=== PATIENT | male | born 2000 | race African-American/Black ===

== ENCOUNTER 2020-08-25 12:41 | Emergency (ER) | payer OTHER, SELFPAY ==
--- NOTE | ~2020-08-25 | US_ITS ---
EXAMINATION: US scrotum doppler EXAM DATE: 08/25/2020 14:20 INDICATION: Mass, lump left testicle/scrotum. TECHNIQUE: Multiple grayscale and Doppler images of the testicles and scrotum were obtained bilateral ly. There is no prior study for comparison. FINDINGS: Right testicle measures 4.6 x 2.4 x 3.8 cm and is morphologically normal. Low resistance Doppler anne w confirmed. The epididymis is unremarkable. There is no hydrocele or varicocele. Left testicle measures 5.6 x 3.2 x 3.1 cm and is morphologically normal. Low resistance Doppler flow confirmed. There is a moderate size left-sided varicocele with vessels measuring up to [address] which augment with Valsalva. The region of the palpable abnormality there is a 2.0 x 1.8 x 0.9 cm region which is heterogeneously hypoechoic with internal flow on color Doppler. This appears contigu ous with the body of the epididymis likely representing swelling and edema of the epididymal tail. Sm all left hydrocele. IMPRESSION: 1. 2.0 x 1.8 x 0.9 cm hypoechoic region at the tail of the epididymis most likely focal epididymitis with acute acute or chronic and either septic or aseptic inflammatory/granulomatous epididymitis. Di fferential would also include thrombosed varicocele or less likely epididymal neoplasm which could be either benign or rarely malignant. 2. Small left hydrocele. Reviewed, dictated and finalized at location B. IMPRESSION: 1. 2.0 x 1.8 x 0.9 cm hypoechoic region at the tail of the epididymis most lik trever focal epididymitis with acute acute or chronic and either septic or aseptic inflammatory/granulomatous epididymitis. Differential would also include throm bosed varicocele or less likely epididymal neoplasm which could be either benig n or rarely malignant. 2. Small left hydrocele.
[2020-08-25 12:49] VITALS: BP 149/84; PULSE 81; RESP 20; TEMP 37.1; O2SAT 100
--- NOTE | 2020-08-25 12:54 | ED_ITS ---
HPI - Male Genitourinary General Chief complaint: Urogenital-Male Stated complaint: lump on scrotum Time Seen by Provider: 08/25/20 12:49 Source: patient Mode of arrival: ambulatory Limitations: no limitations History of Present Illness HPI Narrative: Patient is a 21-year-old male complaining of bump in his left testicle, worsens when he wears tight fitting underwear. Patient denies any testicular pain or swelling. Patient denies any penile discharge. Patient has no other complaints. Related Data Home Medications Medication Instructions Recorded Confirmed No Home Medications 08/25/20 08/25/20 Allergies Allergy/AdvReac Type Severity Reaction Status Date / Time No Known Allergies Allergy Verified 08/25/20 12:51 Review of Systems Review of Systems: All systems reviewed & are unremarkable except as noted in HPI and below PMFSH Comments Past medical history: None Social history: Non-smoker no EtOH or drug use Family history noncontributory Exam Const: General: cooperative, healthy appearing, comfortable and no acute distress HENMT: Head: normal to inspection Ears: hearing grossly normal bilaterally General nose exam: Normal external nose present Face and sinus: normal facial exam Eyes: General: appearance normal, both eyes and all related structures Neck: Neck: normal visual inspection Resp: Effort & Inspection: normal respiratory effort : Penis: Yes normal penis Other: Negative for testicular or scrotal swelling or tenderness. Course Vital Signs Vital signs: Vital Signs Temperature 37.1 C 08/25/20 12:49 Pulse Rate 81 08/25/20 12:49 Respiratory Rate 20 08/25/20 12:49 Blood Pressure 149/84 H 08/25/20 12:49 Pulse Oximetry 100 08/25/20 12:49 Temperature 37.1 C 08/25/20 12:49 Pulse Rate 81 08/25/20 12:49 Respiratory Rate 20 08/25/20 12:49 Blood Pressure 149/84 H 08/25/20 12:49 Pulse Oximetry 100 08/25/20 12:49 MDM - Male Genitourinary MDM Narrative Medical decision making narrative: Ultrasound shows left hydrocele, which is the bump he is complaining of in his left testicle. Advised to follow-up with urology, patient verbalized understanding of the plan and states that he would comply. Discharge Plan Discharge Clinical Impression: Hydrocele of testis Patient Disposition: Home, Self-Care Condition: Stable Instructions: Hydrocele (ED) Prescriptions: No Action No Home Medications RF: 0 Follow-up/Referrals: Cordell Gonzáles MD [Physician] - (Call for an appointment) PHYSICIAN,CERTIFIED MEDICAL TRANSCRIPTIONIST [Primary Care Provider] - Time of Disposition: 15:18
[2020-08-25 15:24] VITALS: BP 138/60; PULSE 60; RESP 18; O2SAT 99
== END 2020-08-25 15:26 | disposition home or self-care (01) ==
PROVIDERS: Emergency Provider Emergency Medicine
DX: N43.2 Other hydrocele (principal)
CPT/HCPCS: 76870; 93976; 99284

== ENCOUNTER 2021-10-04 23:46 | Observation (INO) | payer OTHER, SELFPAY ==
--- NOTE | ~2021-10-04 | CT_ITS ---
EXAMINATION: CT abdomen pelvis w con DATE: 10/05/2021 02:01 INDICATION: Right lower quadrant abdominal pain. TECHNIQUE: Computed tomography (CT) of the abdomen and pelvis was performed with 100 mL Omnipaque 300 intravenous contrast. Automated exposure control and iterative reconstruction technique were employe d. The dose-length product was 789.41 mGy-cm. COMPARISON: None. FINDINGS: The visualized portions of the lung bases demonstrate mild atelectasis. No pleural effusion . There is bilateral gynecomastia. The heart size is normal. No pericardial effusion. The liver, gall bladder, spleen, pancreas, adrenal glands, and right kidney are normal. There are cysts in left kidne y measuring up to 11 mm. The appendix is fluid-filled and dilated to 20 mm with wall thickening. Ther e is trace pelvic ascites. There is an umbilical hernia containing a wall of nonobstructed small diamond l. There are no pathologically enlarged lymph nodes. There is mild thoracolumbar spondylosis. IMPRESSION: 1. Acute appendicitis. 2. Umbilical hernia containing a wall of nonobstructed small bowel. Reviewed, dictated and finalized at location A.
[2021-10-05] VITALS (19 sets, daily range): BP systolic 113–149; BP diastolic 57–83; PULSE 65–110; RESP 13–20; TEMP 36.1–37.8; O2SAT 95–100
[2021-10-05 01:25] LABS: Basophils Percent Auto 0.2 % (0.2-1.2); Eosinophils Absolute Auto 0.1 K/mm3 (0-0.3); Eosinophils Percent Auto 1.5 % (0-4.4); Hematocrit 38.6 % (42.0-52.0); Hemoglobin 12.5 g/dL (14.0-18.0); Immature Granulocyte Absolute 0.02 K/mm3 (0.00-0.031); Immature Granulocyte Percent A 0.4 % (0-0.5); Lymphocytes Absolute Auto 0.89 K/mm3 (0.9-3.2); Lymphocytes Percent Auto 16.9 % (18.3-44.2); Mean Corpuscular HGB Conc 32.4 g/dl (32-36); Mean Corpuscular Hemoglobin 28.3 pg (26-34); Mean Corpuscular Volume 87.3 fl (80-100); Mean Platelet Volume 10.8 fl (7.4-10.4); Monocytes Absolute Auto 0.5 K/mm3 (0.1-0.6); Monocytes Percent Auto 8.9 % (2.6-8.5); Neutrophils Absolute Auto 3.8 K/mm3 (1.3-6.7); Neutrophils Percent Auto 72.1 % (45.5-73.1); Platelet Count Result 176 k/mm3 (150-375); Red Blood Count 4.42 M/mm3 (4.6-6.20); Red Cell Distribution Width 12.3 % (11.5-14.5); White Blood Count 5.3 K/mm3 (4.5-10.0)
[2021-10-05 01:27] LABS: Appearance Urine Clear (Clear); Bilirubin Urine 1+ (Negative); Color Urine Yellow (Yellow); Glucose Urine UA Negative (Negative); Ketones Urine 4+ mg/dL (Negative); Leukocyte Esterase Ur Negative LEU/UL (Negative); Nitrate Urine Negative (Negative); Protein Urine 2+ mg/dL (Negative)
[2021-10-05 01:30] LABS: Add Urine Microscopic? YES; Blood Urine Trace-Intact (Negative)
[2021-10-05 01:31] LABS: Mucus Urine Rare /lpf; RBC Urine 0-2 /hpf (0-2)
[2021-10-05] MEDS: SODIUM CHLORIDE 0.9% IV 1,000 ML 999 ML IV CONT (01:31)
[2021-10-05 01:37] LABS: Alanine Aminotransferase 38 U/L (6-50); Albumin Level 4.4 g/dL (3.5-5.1); Alkaline Phosphatase 80 U/L (38-126); Anion Gap 10 mmol/L (8-16); Aspartate Amino Transferase 54 U/L (17-59); Bilirubin,Total 0.6 mg/dL (0.2-1.3); Blood Urea Nitrogen 13 mg/dL (9-20); Carbon Dioxide 26 mmol/L (22-30); Chloride 103 mmol/L (98-107); Estimated CRCL calculation 102 ml/min; Estimated Glomerular Filt Rate > 60; Glucose 92 mg/dL (65-110); Lipase 197 U/L (23-300); Potassium 3.6 mmol/L (3.4-5.0); Sodium 139 mmol/L (137-145)
--- NOTE | 2021-10-05 01:45 | ED.ABDPAIN ---
HPI - Abdominal Pain General Chief Complaint: Abdominal Pain Stated Complaint: abdominal pain x 5 days Time Seen by Provider: 10/05/21 01:20 Source: patient History of Present Illness HPI narrative: Patient presents with 5 days abdominal pain. Patient ports his pain is primarily in his upper abdomen achy constant, no clear aggravating or alleviating factors. Also reports he felt like he was constipated so has been taking MiraLAX but this morning he had soft watery stool. Symptoms were not getting better so he came to the ER for further evaluation. Denies any nausea or vomiting denies any fevers denies any prior abdominal surgeries. Related Data Home Medications Medication Instructions Recorded Confirmed No Home Medications 08/25/20 10/05/21 Allergies Allergy/AdvReac Type Severity Reaction Status Date / Time No Known Allergies Allergy Verified 08/25/20 12:51 Review of Systems Review of Systems: CONSTITUTIONAL: Denies fever, chills, or sweats. EYES: Denies visual changes, redness, or discharge. ENT: Denies rhinorrhea, congestion, sore throat, or otalgia. CARDIOVASCULAR: Denies chest pain, palpitations, or edema. RESPIRATORY: Denies cough or dyspnea. GASTROINTESTINAL: Denies nausea, vomiting. GENITOURINARY: Denies dysuria or hematuria. SKIN: Denies rash or itching. MUSCULOSKELETAL: Denies back pain, joint pain, or myalgia. NEUROLOGIC: Denies headache, numbness, dizziness, or weakness. PSYCHIATRIC: Denies anxiety or depression. All systems reviewed & are unremarkable except as noted in HPI and below PMFSH Past Medical History Medical History (Updated 10/05/21 @ 04:51 by Tank Storm MD) Patient denies significant medical history Family History Family History (Updated 10/05/21 @ 05:57 by Zarina Rosa RN) Mother Hypertension Social History Social History (Updated 10/05/21 @ 01:47 by Tank Storm MD) Smoking status: Never smoker Alcohol intake: current Drinks per week: 3 Substance use: never Substance use type: does not use Spiritual care concerns: No Exam Narrative: GENERAL: Well-appearing, well-nourished, and in no acute distress. HEAD: Normocephalic, atraumatic. EYES: PERRLA and EOMI. ENT: Nares clear, no rhinorrhea or epistaxis. Mucous membranes moist. NECK: Supple. No masses. No JVD ABDOMEN: Moderate right lower quadrant abdominal pain no rebound or guarding soft, nondistended EXTREMITIES: Normal range of motion. No edema. SKIN: Warm, dry, no rash. NEURO: No focal deficits. Alert and oriented x3. PSYCH: Normal mood and affect. Course Reevaluation(s) Reevaluation #1: Patient resting comfortably no complaint discussed with patient. Patient is comfortable inpatient plan. Case cussed with general surgery on-call who admit for further management. Date: 10/05/21 Time: 04:50 Consultations Consultation #1: Currently pending radiology read from stat rad Date: 10/05/21 Time: 03:57 Vital Signs Vital signs: Vital Signs Temperature 37.8 C H 10/05/21 00:43 Pulse Rate 110 H 10/05/21 00:43 Respiratory Rate 20 10/05/21 00:43 Blood Pressure 119/71 10/05/21 00:43 Pulse Oximetry 100 10/05/21 00:43 Oxygen Delivery Room Air 10/05/21 00:43 Temperature 36.6 C 10/05/21 06:34 Pulse Rate 72 10/05/21 06:34 Respiratory Rate 20 10/05/21 06:34 Blood Pressure 132/57 L 10/05/21 06:34 Pulse Oximetry 99 10/05/21 06:34 Oxygen Delivery Room Air 10/05/21 06:11 MDM - Abdominal Pain MDM Narrative Medical decision making narrative: Patient presented with abdominal pain exam notable for right lower quadrant abdominal pain. Labs and imaging obtained. Imaging concerning for appendicitis. Given imaging findings general surgery was consulted who will admit for further management Lab Data Result diagrams: 10/05/21 01:18 10/05/21 01:18 Labs: Lab Results 10/05/21 10/05/21 10/05/21 Range/Units 01:18 01:18 01:19
--- NOTE | 2021-10-05 05:50 | ADMGEN ---
This patient, Kerwin Bazan, was admitted to Medical Room 243-01. Patient/family oriented to hospital policies and general routines including ID bracelet, bed and alarms, visiting hours, pain management, procedures, bathroom and other care routines, personal items, smoking policy, room service/diet, and visiting hours. Information on how to activate the Rapid Response Team has been discussed. Patient/Family are encouraged to report perceived risks to care and to ask questions if they do not understand what they are told or what they should do.
[2021-10-05] MEDS: SODIUM CHLORIDE 0.9% IV 1,000 ML 125 ML IV CONT (06:03)
--- NOTE | 2021-10-05 08:59 | PM.SD2 ---
Same Day Admit/Disch: [facility] History of Present Illness Chief complaint: appendicitis Narrative: Kerwin Bazan is a 21 year old male who felt constipated and had some mid abdominal pain starting 5 days ago. He started taking MiraLax for the next 3 days. The pain was about the same, not very severe. Then yesterday of the pain worsened. He had stopped taking the MiraLax. He decided to come to the emergency room last night. In the emergency room, he was noted to have tenderness in the right lower quadrant with guarding. He had a normal white blood cell count. CT scan of the abdomen and pelvis however showed acute appendicitis with a quite dilated appendix and periappendiceal stranding. He is admitted now with plans to proceed with laparoscopic appendectomy today. [facility] Family History Family History (Updated 10/05/21 @ 05:57 by Zarina Rosa RN) Mother Hypertension Social History Social History (Updated 10/05/21 @ 01:47 by Tank Storm MD) Smoking status: Never smoker Alcohol intake: current Drinks per week: 3 Substance use: never Substance use type: does not use Spiritual care concerns: No Same Day Admit/Disch: Med Pre-admit Medications Home Medications Medication Instructions Recorded Confirmed Type No Home Medications 08/25/20 10/05/21 History hydrocodone 5 mg-acetaminophen 325 1 - 2 tablet PO Q6H PRN pain #10 10/05/21 Rx mg tablet tabs Exam Const: General: comfortable, no acute distress, alert and awake HENMT: Head: normocephalic and atraumatic Mouth: Yes Normal oral and palatal mucosa present Eyes: Conjunctivae: conjunctivae normal Pupils: Equal, round and reactive pupils present EOM: EOMs intact bilaterally Neck: Neck: normal visual inspection, no lymphadenopathy and nontender Resp: Effort & Inspection: normal respiratory effort Auscultation: clear to auscultation bilaterally Cardio: Rate: regular rate Rhythm: regular rhythm Heart sounds: no gallops, no murmurs and no rubs GI: Inspection: normal to inspection, non-distended, no scars and no visible herniation GI Palp: Yes Soft to palpation, Yes Tenderness to palpation present (GI) ( right lower quadrant more in suprapubic area), Yes Guarding due to palpation present (GI), Yes No hepatosplenomegaly present, No Hepatomegaly present, No Splenomegaly present, No Hernia present and No Palpable mass present Auscultation: Hypoactive bowel sounds present Skin: Lesions: no lesions Rashes: no rashes Neuro: General: no focal motor deficits and CN's II-XI intact bilaterally Cranial nerves: Yes Equal, round and reactive pupils present, Yes Bilaterally intact EOM present, Yes facial symmetry and Yes Midline tongue present Speech: normal speech Motor exam (neuro): 5/5 motor strength present throughout and Motor abnormalities not present Extrem: General: no clubbing, cyanosis or edema and edema Psych: Affect: normal affect Thought process: Normal thought process present Insight: Good insight present (Psych) DS: Data Data Completed and Pending Labs on day of discharge: Labs from last 24 hours 10/05/21 10/05/21 10/05/21 01:19 01:18 01:18 WBC 5.3 RBC 4.42 L Hgb 12.5 L Hct 38.6 L MCV 87.3 MCH 28.3 MCHC 32.4 RDW 12.3 Plt Count 176 MPV 10.8 H Immature Gran % (Auto) 0.4 Neut % (Auto) 72.1 Lymph % (Auto) 16.9 L [place] % (Auto) 8.9 H Eos % (Auto) 1.5 Baso % (Auto) 0.2 Lymph # (Auto) 0.89 L [place] # (Auto) 0.5 Eos # (Auto) 0.1 Baso # (Auto) 0.0 Abs Immat Gran (auto) 0.02 Absolute Neuts (auto) 3.8 Absolute Nucleated RBC 0.0 Nucleated RBC % 0.0 Sodium 139 Potassium 3.6 Chloride 103 Carbon Dioxide 26 Anion Gap 10 BUN 13 Creatinine 1.10 Estim Creat Clear Calc 102 Estimated GFR > 60 Glucose 92 Calcium 9.0 Total Bilirubin 0.6 AST 54 ALT 38 Alkaline Phosphatase 80 Total Protein 8.0 Albumin 4.
[2021-10-05] MEDS: LACTATED RINGERS 1,000 ML 30 ML IV CONT ×2 (12:30→14:48)
--- NOTE | 2021-10-05 12:42 | WPDANESEPPF ---
Anes - Initial Pre Proc Eval Procedure: Operation Date: 10/05/21 13:00 Proposed Procedures p Laparoscopic Appendectomy - Andriy Montano MD Date/Time: 10/05/21 12:42 Surgeon: Andriy Montano MD Pre Op Diagnosis: appendicitis Patient Data Age: 21 Gender: M Height: 1.83 m Weight: 97.5 kg Last Vital Signs Temp 36.1 C L 10/05/21 12:00 Pulse 65 10/05/21 12:00 Resp 18 10/05/21 12:00 BP 134/76 10/05/21 12:00 Pulse Ox 100 10/05/21 12:00 O2 Del Method Room Air 10/05/21 12:00 Allergies Allergy/AdvReac Type Severity Reaction Status Date / Time No Known Allergies Allergy Verified 10/05/21 12:08 Home Medications Medication Instructions Recorded Confirmed Type No Home Medications 08/25/20 10/05/21 History Laboratory Tests 10/05/21 10/05/21 10/05/21 01:18 01:18 01:19 WBC 5.3 K/mm3 K/mm3 (4.5-10.0) RBC 4.42 M/mm3 L M/mm3 (4.6-6.20) Hgb 12.5 g/dL L g/dL (14.0-18.0) Hct 38.6 % L % (42.0-52.0) MCV 87.3 fl fl (80-100) MCH 28.3 pg pg (26-34) MCHC 32.4 g/dl g/dl (32-36) RDW 12.3 % % (11.5-14.5) Plt Count 176 k/mm3 k/mm3 (150-375) MPV 10.8 fl H fl (7.4-10.4) Immature Gran % (Auto) 0.4 % % (0-0.5) Neut % (Auto) 72.1 % % (45.5-73.1) Lymph % (Auto) 16.9 % L % (18.3-44.2) [place] % (Auto) 8.9 % H % (2.6-8.5) Eos % (Auto) 1.5 % % (0-4.4) Baso % (Auto) 0.2 % % (0.2-1.2) Lymph # (Auto) 0.89 K/mm3 L K/mm3 (0.9-3.2) [place] # (Auto) 0.5 K/mm3 K/mm3 (0.1-0.6) Eos # (Auto) 0.1 K/mm3 K/mm3 (0-0.3) Baso # (Auto) 0.0 K/mm3 K/mm3 (0.0-0.1) Abs Immat Gran (auto) 0.02 K/mm3 K/mm3 (0.00-0.031) Absolute Neuts (auto) 3.8 K/mm3 K/mm3 (1.3-6.7) Absolute Nucleated RBC 0.0 K/mm3 K/mm3 (0.0-0.012) Nucleated RBC % 0.0 % % (0.0-0.2) Sodium 139 mmol/L mmol/L (137-145) Potassium 3.6 mmol/L mmol/L (3.4-5.0) Chloride 103 mmol/L mmol/L (98-107) Carbon Dioxide 26 mmol/L mmol/L (22-30) Anion Gap 10 mmol/L mmol/L (8-16) BUN 13 mg/dL mg/dL (9-20) Creatinine 1.10 mg/dL mg/dL (0.7-1.3) Estim Creat Clear Calc 102 ml/min ml/min Estimated GFR > 60 (59 - ) Glucose 92 mg/dL mg/dL (65-110) Calcium 9.0 mg/dL mg/dL (8.4-10.2) Total Bilirubin 0.6 mg/dL mg/dL (0.2-1.3) AST 54 U/L U/L (17-59) ALT 38 U/L U/L (6-50) Alkaline Phosphatase 80 U/L U/L (38-126) Total Protein 8.0 g/dL g/dL (6.3-8.2) Albumin 4.4 g/dL g/dL (3.5-5.1) Lipase 197 U/L U/L (23-300) Urine Color Yellow (Yellow) Urine Appearance Clear (Clear) Urine pH 7.0 (5.0-9.0) Ur Specific [place] 1.020 (1.001-1.035) Urine Protein 2+ mg/dL H mg/dL (Negative) Urine Glucose (UA) Negative mg/dL mg/dL (Negative) Urine Ketones 4+ mg/dL H mg/dL (Negative) Ur Blood (Man) Trace-intact (Negative) Urine Nitrate Negative (Negative) Urine Bilirubin 1+ H (Negative) Urine Urobilinogen 4.0 mg/dL H mg/dL (<2.0) Leukocyte Esterase Rfl Negative SASCHA/UL SASCHA/UL (Negative) Urine RBC 0-2 /hpf /hpf (0-2) Urine WBC 4-6 /hpf H /hpf Urine Mucus Rare /lpf /lpf Patient hx anesthesia problems: none Family hx anesthesia problems: none Results Review: All pre-operative results and documents have been reviewed as part of the pre-operative evaluation. [facility] Past Medical History Medical History (Updated 10/05/21 @ 04:51 by Tank Storm MD) Patient denies significant medical history Family History Family History (Updated
--- NOTE | 2021-10-05 13:39 | WPDHPUPDATE1 ---
History and Physical Update Update Date/Time: 10/05/21 13:39 History and Physical has been reviewed, including an updated exam of the patient. There are NO changes in the patient's condition. Risks, benefits, and alternatives have been discussed and questions answered. Patient agrees to proceed with procedure.
[2021-10-05] MEDS: BUPIVACAINE/EPINEPHRINE 0.25% 50 ML VIAL 30 ML INFILTRATE (14:14)
[2021-10-05] MEDS: fentaNYL CITRATE INJ (*CRX) 100 MCG/2 ML VIAL 25 MCG IV PUSH ×4 (15:10→15:42)
--- NOTE | 2021-10-05 15:27 | P.OP_ITS ---
Procedure Note - Detailed Date of Procedure 10/05/21 Pre-op Diagnosis appendicitis Post-op Diagnosis Same Procedure Performed Laparoscopic appendectomy Surgeon Andriy Montano MD Training Development Specialist ZACK Choi Anesthesia General and Local (0.25% bupivacaine with epinephrine) Indications Patient had 5 days of mid abdominal pain that seemed like constipation. This got worse yesterday and he came to the emergency room. He was noted to have tenderness with guarding in the right lower quadrant. He was of febrile and had a normal white count. CT scan showed acute appendicitis. He is taken to surgery now for laparoscopic appendectomy. Findings Acute non perforated appendicitis, partially retrocecal. Description of Procedure Patient was taken to surgery and induced into general anesthesia. The abdomen is prepped and draped. Trocars were placed in the usual fashion using 0.25% bupivacaine with epinephrine and applied Medical optical trocars. A 5 mm camera was used. Patient was placed in Trendelenburg with the right-side elevated. The cecum was located and the appendix was partially retrocecal. I took down a few adhesions to the cecum it was able to visualize the appendix. There was an appendicoliths it seemed about 1-1/2 cm beyond the origin of the appendix. The distal appendix was quite inflamed but I did not see evidence of a ruptured appendix. It was quite dilated as well. It was stuck to the right pelvic brim and upper lateral pelvis. I freed the terminal ileum from the appendix and then dissected it off the sidewall. Eventually it was completely freed. The appendix was then elevated and dissection was carried out in the mesoappendix. The appendiceal artery was found and thoroughly cauterized. It was then divided. The remainder of the mesoappendix was divided with the cautery and the base of the appendix was skeletonized. A Vicryl endoloop was used to ligate the appendix at its base. The appendix was amputated just above the ligature and the mucosa of the appendiceal stump was cauterized. The appendix was placed immediately in Endo-Catch bag and retrieved through the 10 11 left lower quadrant trocar. The trocar was then replaced and we reviewed the appendiceal stump in the areas of dissection. Residual clotted blood was suctioned away and the area was irrigated and suctioned to or 3 times. All looked good with no evidence of bleeding or other problems. As much of the irrigant was suctioned away as possible. I then used the Kamari cone and Kamari-Sienna suture Passer device. The fascia at the 10 11 trocar site and left lower quadrant was closed with 0 Vicryl. We evacuated CO2 and removed the trocar sleeves. Skin wounds were closed with subcuticular 4-0 Monocryl skin suture. Wounds were dressed with Exofin surgical adhesive. Patient was awakened and taken to recovery in good condition. Sponge needle counts were correct x2. Estimated Blood Loss -5.0 Drains No Packing No Pathology Yes (Appendix) Complications No immediate complications Condition Stable Disposition PACU [facility] Billing Surgery - Charge Forward: Surgery Billing (Laparoscopic appendectomy)
[2021-10-05] MEDS: HYDROcodone/acetaminophen (*CRX) 5-325 MG TABLET 1 TAB PO (17:00)
== END 2021-10-05 18:50 | disposition home or self-care (01) ==
LOC: ANHED 10-05 04:51 → ANH2MED 10-05 07:18
PROVIDERS: Physician Assistant; Admitting Provider Surgery; Emergency Provider Emergency Medicine; Visit Provider Surgery
PROC: 0DTJ4ZZ Resection of Appendix, Percutaneous Endoscopic Approach (ICD-10-PCS; CPT 44970; principal; 2021-10-05 13:00)
DX: K35.80 Unspecified acute appendicitis (principal); R10.9 Unspecified abdominal pain
CPT/HCPCS: 44970; 36415; 74177; 80053; 81001; 83690; 85025; 88304; 96361; 96365; 96367; 99285; A9270; G0378; G0379; J0131; J1100; J2250; J2405; J2543; J2704; J2710; J3010; J7030; J7120; Q9967

== ENCOUNTER 2021-10-15 19:20 | Emergency (ER) | payer OTHER, SELFPAY ==
[2021-10-15 19:23] VITALS: BP 133/53; PULSE 122; RESP 18; TEMP 37; O2SAT 99
--- NOTE | 2021-10-15 19:31 | ECG_ITS ---
Measurements Intervals [place] Rate: 95 P: 40 UT: 139 QRS: 45 QRSD: 94 T: 30 QT: 332 QTc: 418 Interpretive Statements SINUS RHYTHM RSR' IN V1 OR V2, PROBABLY NORMAL VARIANT BASELINE ARTIFACT- I, III, AVL BORDERLINE ECG Electronically Signed On 10-15-2021 21:18:24 CDT by Arnold Ponce D.O.
--- NOTE | 2021-10-15 19:37 | ED.SYNCOPE ---
HPI - Syncope General Chief Complaint: Syncope Stated Complaint: syncope Time Seen by Provider: 10/15/21 19:30 History of Present Illness HPI narrative: 21-year-old male presents emergency room for evaluation of a syncopal episode. Patient states that he works in the [employer], and feels like he might of overheated. Patient does endorse lightheadedness and dizziness, frequently after strenuous activity. Patient denies any chest pain, shortness of breath or difficulty breathing. Patient states that he lost consciousness for approximately 2 to 3 seconds. Denies any injury or trauma. Related Data Allergies Allergy/AdvReac Type Severity Reaction Status Date / Time No Known Allergies Allergy Verified 10/15/21 19:26 Review of Systems Review of Systems: CONSTITUTIONAL: Denies fever, chills, or sweats. EYES: Denies visual changes, redness, or discharge. ENT: Denies rhinorrhea, congestion, sore throat, or otalgia. CARDIOVASCULAR: Denies chest pain, palpitations, or edema. RESPIRATORY: Denies cough or dyspnea. GASTROINTESTINAL: Denies abdominal pain, nausea, vomiting, or diarrhea. GENITOURINARY: Denies dysuria or hematuria. SKIN: Denies rash or itching. MUSCULOSKELETAL: Denies back pain, joint pain, or myalgia. NEUROLOGIC: Denies headache, numbness, dizziness, or weakness. PSYCHIATRIC: Denies anxiety or depression. PMFSH Family History Family History Mother Hypertension Social History Social History Smoking status: Never smoker Alcohol intake: current Drinks per week: 3 Substance use: never Substance use type: does not use Spiritual care concerns: No Exam Narrative: GENERAL: Well-appearing, well-nourished, no physical limitations, and in no acute distress. HEAD: Normocephalic, atraumatic. EYES: Conjunctivae normal, PERRLA and EOMI. NECK: Supple. CHEST: Clear to auscultation. No respiratory distress. No wheezes rales or rhonchi. No tenderness. HEART: Regular rate and rhythm. No murmur heard. Normal peripheral pulses. EXTREMITIES: Normal range of motion. No edema. No clubbing or cyanosis SKIN: Warm, dry, no rash. No noted wounds NEURO: No focal deficits. Alert and oriented x3. MAEW. CN's II-XI intact bilaterally, normal gait PSYCH: Cooperative. Normal mood and affect. Course Vital Signs Vital signs: Vital Signs Temperature 37.0 C 10/15/21 19:23 Pulse Rate 122 H 10/15/21 19:23 Respiratory Rate 18 10/15/21 19:23 Blood Pressure 133/53 L 10/15/21 19:23 Pulse Oximetry 99 10/15/21 19:23 Oxygen Delivery Room Air 10/15/21 19:23 Temperature 37.0 C 10/15/21 19:23 Pulse Rate 122 H 10/15/21 19:23 Respiratory Rate 18 10/15/21 19:23 Blood Pressure 133/53 L 10/15/21 19:23 Pulse Oximetry 99 10/15/21 19:23 Oxygen Delivery Room Air 10/15/21 19:23 MDM - Syncope MDM Narrative Medical decision making narrative: 21-year-old male presented emergency room complaints of a syncopal episode. Patient remarked that he felt like he was dehydrated and had not voided all day today. Patient denies trauma headache or seizure activity. Present with no focal neurodeficits. Cardiac exam was normal. Based on the [place] syncopal rule, patient is a low risk and well-appearing here. Patient was given 2 L of fluid and states that he felt better. Patient will be discharged home primary care. Lab Data Result diagrams: 10/15/21 19:42 10/15/21 22:23 Labs: Lab Results 10/15/21 10/15/21 10/15/21 Range/Units 19:42 19:42 19:54 WBC 7.6 (4.5-10.0) K/mm3 RBC 3.85 L (4.6-6.20) M/mm3 Hgb 10.7 L (14.0-18.0) g/dL Hct 33.7 L (42.0-52.0) % MCV 87.5 (80-100) fl MCH 27.8 (26-34) pg MCHC 31.8 L (32-36) g/dl RDW 12.4 (11.5-14.5) % Plt Count 369 D (150-375) k/mm3 MPV 9.6 (7.4-10.4) fl Immature G
[2021-10-15 20:01] LABS: Basophils Percent Auto 0.1 % (0.2-1.2); Eosinophils Absolute Auto 0.1 K/mm3 (0-0.3); Eosinophils Percent Auto 1.3 % (0-4.4); Hematocrit 33.7 % (42.0-52.0); Hemoglobin 10.7 g/dL (14.0-18.0); Immature Granulocyte Absolute 0.02 K/mm3 (0.00-0.031); Immature Granulocyte Percent A 0.3 % (0-0.5); Lymphocytes Absolute Auto 0.68 K/mm3 (0.9-3.2); Lymphocytes Percent Auto 8.9 % (18.3-44.2); Mean Corpuscular HGB Conc 31.8 g/dl (32-36); Mean Corpuscular Hemoglobin 27.8 pg (26-34); Mean Corpuscular Volume 87.5 fl (80-100); Mean Platelet Volume 9.6 fl (7.4-10.4); Monocytes Absolute Auto 0.5 K/mm3 (0.1-0.6); Monocytes Percent Auto 5.9 % (2.6-8.5); Neutrophils Absolute Auto 6.4 K/mm3 (1.3-6.7); Neutrophils Percent Auto 83.5 % (45.5-73.1); Platelet Count Result 369 k/mm3 (150-375); Red Blood Count 3.85 M/mm3 (4.6-6.20); Red Cell Distribution Width 12.4 % (11.5-14.5); White Blood Count 7.6 K/mm3 (4.5-10.0)
[2021-10-15 20:07] LABS: Appearance Urine Clear (Clear); Bilirubin Urine 2+ (Negative); Blood Urine Negative (Negative); Color Urine Yellow (Yellow); Glucose Urine UA Negative (Negative); Ketones Urine 2+ mg/dL (Negative); Leukocyte Esterase Ur Negative LEU/UL (Negative); Nitrate Urine Negative (Negative); Protein Urine 2+ mg/dL (Negative); Specific Grav Ur 1.015 (1.001-1.035)
[2021-10-15 20:13] LABS: Alanine Aminotransferase 51 U/L (6-50); Alkaline Phosphatase 91 U/L (38-126); Anion Gap 10 mmol/L (8-16); Aspartate Amino Transferase 53 U/L (17-59); Bilirubin,Total 0.9 mg/dL (0.2-1.3); Blood Urea Nitrogen 13 mg/dL (9-20); Calcium 9.3 mg/dL (8.4-10.2); Carbon Dioxide 22 mmol/L (22-30); Chloride 105 mmol/L (98-107); Estimated CRCL calculation 76 ml/min; Estimated Glomerular Filt Rate > 60; Glucose 95 mg/dL (65-110); Potassium 3.5 mmol/L (3.4-5.0); Sodium 137 mmol/L (137-145)
[2021-10-15 20:15] LABS: Bacteria Urine Trace /hpf; Hyaline Casts Urine 50+ /lpf; Mucus Urine Moderate /lpf; Squamous Epithelial Cell Urine Rare /hpf (Few); WBC Urine 16-20 /hpf
[2021-10-15 20:19] LABS: Add Urine Microscopic? YES
[2021-10-15 20:25] LABS: Troponin I < 0.012 ng/mL (0.000-0.034)
[2021-10-15] MEDS: SODIUM CHLORIDE 0.9% IV 1,000 ML 999 ML IV CONT ×2 (20:31→20:47)
[2021-10-15 21:16] LABS: Amphetamine Screen Urine Negative (Negative); Barbiturate Screen Urine Negative (Negative); Benzodiazepines Screen Urine Negative (Negative); Cannabinoid Screen Urine Negative (Negative); Cocaine Screen Urine Negative (Negative); Methadone Screen Urine Negative (Negative); Opiate Screen Urine Negative (Negative); Phencyclidine Screen Urine Negative (Negative)
[2021-10-15 22:44] LABS: Anion Gap 7 mmol/L (8-16); Blood Urea Nitrogen 11 mg/dL (9-20); Calcium 8.2 mg/dL (8.4-10.2); Carbon Dioxide 22 mmol/L (22-30); Chloride 109 mmol/L (98-107); Estimated CRCL calculation 94 ml/min; Estimated Glomerular Filt Rate > 60; Glucose 84 mg/dL (65-110); Potassium 3.7 mmol/L (3.4-5.0); Sodium 138 mmol/L (137-145)
[2021-10-15 23:30] VITALS: BP 153/92; PULSE 103; RESP 16; O2SAT 98
== END 2021-10-15 23:30 | disposition home or self-care (01) ==
PROVIDERS: Emergency Provider Nurse Practitioner Family
DX: R55 Syncope and collapse (principal); E86.0 Dehydration; R94.31 Abnormal electrocardiogram [ECG] [EKG]
CPT/HCPCS: 36415; 80048; 80053; 80307; 81001; 84484; 85025; 87086; 93005; 96360; 96361; 99284; J7030